=== PATIENT | male | born 1945 | race Caucasian/White ===

== ENCOUNTER 2021-08-07 01:03 | Inpatient (IN) ==
[2021-08-07] MEDS ORDERED: Naloxone 0.4 MG/ML INJ IVP PRN ×2 (03:24→20:21)
[2021-08-07] MEDS ORDERED: Ondansetron 4 MG/2 ML VIAL IVP PRN ×2 (03:24→20:21)
[2021-08-07] MEDS ORDERED: 0.9 % Sodium Chloride 1,000 ML IVC SCH ×2 (03:30→15:00)
[2021-08-07] MEDS ORDERED: Acetaminophen 325 MG TABLET PO PRN ×2 (04:42→20:21)
[2021-08-07] MEDS ORDERED: Melatonin 3 MG TABLET PO PRN ×2 (04:42→20:21)
[2021-08-07] MEDS ORDERED: *HR* HYDROcodone/Acet 5/325 mg TABLET PO PRN (04:42)
[2021-08-07] MEDS ORDERED: *HR* Metoprolol 5 MG/5 ML VIAL IVP ONE ×2 (04:46→15:15)
[2021-08-07] MEDS ORDERED: *HR* Heparin 5,000 UNIT/ML VIAL IVP PRN ×2 (04:49)
[2021-08-07] MEDS ORDERED: Heparin 25,000UNIT/250ML 1/2NS 25,000 UNIT/250 ML IV.SOLN IVC SCH (05:00)
[2021-08-07] MEDS ORDERED: Saliva Stimulant 44.3ml BOTTLE PO PRN ×2 (05:35→20:21)
[2021-08-07] MEDS ORDERED: D5% in Water 1,000 ML IVC PRN ×2 (05:35→20:21)
[2021-08-07] MEDS ORDERED: Dextrose Gel 15 GM/37.5 ML TUBE PO PRN ×4 (05:35→20:21)
[2021-08-07] MEDS ORDERED: *HR* Dextrose 50 % in Water (Syg) 50 ML SYRINGE IVP PRN ×2 (05:35→20:21)
[2021-08-07] MEDS ORDERED: Isovue-370 500 ML BOTTLE IVP ONE ×3 (05:45→20:21)
[2021-08-07 05:49] LABS: Bacteria,Urine Few per hpf (None-Few); Bilirubin,Urine Negative (Negative); Blood,Urine Moderate (Negative); Clarity,Urine Clear (Clear); Color,Urine Yellow (Yellow); Glucose,Urine (UA) Normal (Normal); Ketones,Urine 20 mg/dL (Negative); Leukocyte Esterase,Urine Negative (Negative); Mucus,Urine Few per lpf (None-Few); Nitrite,Urine Negative (Negative); Protein,Urine 50 mg/dL (Neg-Trace); RBC,Urine 30-50 per hpf (0-3); Specific Gravity,Urine > 1.030 (1.010-1.025); Squamous Epithelial Cell,Urine Few per hpf (None-Few)
[2021-08-07 06:05] LABS: Basophils % 0.2 %; Hematocrit 30.4 % (37.5-50.1); Hemoglobin 10.1 g/dL (12.9-16.9); Immature Granulocytes % 1.7 % (0-4); Lymphocytes % 2.3 %; Mean Corpuscular HGB Conc 33.2 g/dL (31.6-35.5); Mean Corpuscular Hemoglobin 28.7 pg (28.0-33.3); Mean Corpuscular Volume 86.4 fL (83.0-100.0); Mean Platelet Volume 9.4 fL (9.4-12.4); Monocytes # 1.4 K/mcL (0.0-1.3); Monocytes % 5.7 %; Platelet Count 361 K/mcL (140-400); Red Blood Count 3.52 M/mcL (4.19-5.50); Red Cell Distribution Width 13.2 % (11.5-14.5); Segmented Neutrophils % 90.1 %; White Blood Count 23.9 K/mcL (4.3-11.1)
[2021-08-07 06:13] LABS: INR 1.2; Prothrombin Time 13.5 Seconds (9.4-12.1)
[2021-08-07 06:14] LABS: Basophils # 0.1 K/mcL (0.0-0.2); Lymphocytes # 0.6 K/mcL (0.6-4.6); Neutrophils # 21.5 K/mcL (1.6-8.9)
[2021-08-07 06:15] LABS: Activated Partial Thrombo Time 27.2 Seconds (26.0-36.0); Heparin anti-factor XA UFH < 0.04 IU/mL (0.30-0.70)
[2021-08-07 06:30] LABS: Platelet Estimate Normal (Normal)
[2021-08-07 06:31] LABS: Magnesium 1.7 mg/dL (1.6-2.6)
[2021-08-07 06:36] LABS: Alanine Aminotransferase 15 Units/L (7-52); Albumin 1.8 g/dL (3.5-5.7); Albumin/Globulin Ratio 0.8 (1.1-2.2); Alkaline Phosphatase 89 Units/L (34-104); Aspartate Amino Transferase 28 Units/L (13-39); BUN/Creatinine Ratio 35 (6-26); Bilirubin,Total 1.1 mg/dL (0.3-1.0); Blood Urea Nitrogen 27 mg/dL (8-23); Carbon Dioxide 14 mEq/L (23-29); Chloride 109 mEq/L (98-107); Globulin 2.2 g/dL (2.4-3.5); Glucose 72 mg/dL (70-105); Osmolality,Calculated 280 (280-300); Sodium 133 mEq/L (136-145); eGFR For African Americans > 60 (> 60); eGFR For Non-African Americans > 60 (> 60)
[2021-08-07 06:57] LABS: VBG Ionized Calcium 1.03 mmol/L (1.15-1.35)
[2021-08-07] MEDS ORDERED: Potassium Chloride Elixir 20 MEQ/15 ML UDC PO ONE (08:40)
[2021-08-07] MEDS ORDERED: DilTIAZem CD (24hr) 180 MG CAP.ER.24H PO SCH (09:00)
[2021-08-07] MEDS ORDERED: Chlorhexidine Rinse 15 ML MOUTHWASH MM SCH (09:00)
[2021-08-07] MEDS ORDERED: Lactobacillus 1 EACH CAP.SPRINK PO SCH (09:00)
[2021-08-07] MEDS ORDERED: Multivit/Ca/Min/Fe/FA 1 TAB TABLET PO SCH (09:00)
[2021-08-07] MEDS: Piperacillin/Tazobactam 3.375 GM in 0.9 % Sodium Chloride Mini Bag 100 ML IVPB SCH ×2 (09:23→21:12)
[2021-08-07] MEDS: Calcium Gluconate 1gm/50mL 1 GM/50 ML BAG IVPB SCH ×2 (09:40→10:27)
[2021-08-07 09:45] LABS: Hepatitis B Surface Antigen Nonreactive (Nonreactive)
[2021-08-07 10:10] LABS: Carcinoembryonic Antigen 5.8 ng/mL (Less than 5.0)
[2021-08-07 10:13] LABS: Hepatitis B Core IgM Nonreactive (Nonreactive)
[2021-08-07 10:15] LABS: Hepatitis A Antibody IgM Nonreactive (Nonreactive)
[2021-08-07 10:45] LABS: C-Reactive Protein 125 mg/L (Less than 10)
[2021-08-07] MEDS ORDERED: Calcium Gluconate 1gm/50mL 1 GM/50 ML BAG IVPB ONE (11:30)
[2021-08-07] MEDS ORDERED: *HR* FentaNYL (PF) 100 MCG/2 ML VIAL ONE (13:22)
[2021-08-07] MEDS ORDERED: *HR* Propofol 200 MG/20 ML VIAL IVP ONE (13:22)
[2021-08-07] MEDS ORDERED: Lidocaine -MPF 2% 5 ML VIAL ONE (13:27)
[2021-08-07] MEDS ORDERED: *HR* Etomidate 40 MG/20 ML VIAL IVP ONE (14:34)
[2021-08-07] MEDS ORDERED: Lidocaine HCL 4 ML Topical Solution (Laryng-O-Jet Kit Sterile Pak) TP ONE (14:34)
[2021-08-07 15:30] LABS: Hepatitis C Virus Antibody Reactive (Nonreactive)
[2021-08-07] MEDS: *HR* Metoprolol 5 MG/5 ML VIAL IVP PRN ×5 (16:59→18:29)
[2021-08-07] MEDS ORDERED: Ringers Solution, Lactated 1,000 ML ONE (17:25)
[2021-08-07 17:52] LABS: ABG Base Excess -10 mEq/L (-2 to 3); ABG HCO3 14 mEq/L (21-27); ABG Oxygen Saturation 99 % (95-98); ABG PCO2 27 mmHg (35-45); ABG PH 7.34 pH Units (7.32-7.45); ABG PO2 131 mmHg (85-104); ABG TCO2 15 mEq/L (20-26)
[2021-08-07 18:50] LABS: Basophils # 0.1 K/mcL (0.0-0.2); Basophils % 0.3 %; Hematocrit 33.6 % (37.5-50.1); Hemoglobin 11.3 g/dL (12.9-16.9); Immature Granulocytes % 3.7 % (0-4); Lymphocytes # 0.4 K/mcL (0.6-4.6); Lymphocytes % 1.3 %; Mean Corpuscular HGB Conc 33.6 g/dL (31.6-35.5); Mean Corpuscular Hemoglobin 29.7 pg (28.0-33.3); Mean Corpuscular Volume 88.2 fL (83.0-100.0); Mean Platelet Volume 9.4 fL (9.4-12.4); Monocytes # 1.2 K/mcL (0.0-1.3); Monocytes % 3.8 %; Platelet Count 424 K/mcL (140-400); Red Blood Count 3.81 M/mcL (4.19-5.50); Red Cell Distribution Width 13.5 % (11.5-14.5); Segmented Neutrophils % 90.9 %
[2021-08-07 19:05] LABS: BUN/Creatinine Ratio 28 (6-26); Blood Urea Nitrogen 31 mg/dL (8-23); Calcium 7.7 mg/dL (8.6-10.3); Carbon Dioxide 15 mEq/L (23-29); Chloride 102 mEq/L (98-107); Glucose 101 mg/dL (70-105); Osmolality,Calculated 277 (280-300); Potassium 4.8 mEq/L (3.5-5.1); Sodium 130 mEq/L (136-145); eGFR For African Americans > 60 (> 60); eGFR For Non-African Americans > 60 (> 60)
[2021-08-07 19:20] LABS: Neutrophils # 28.2 K/mcL (1.6-8.9)
[2021-08-07 19:21] LABS: Dohle Bodies Present (Not Present); Toxic Vacuolation Present (Not Present)
[2021-08-07 19:22] LABS: Large Platelets Present (Not Present)
[2021-08-07] MEDS: 0.9 % Sodium Chloride 1,000 ML IVC SCH (21:49)
[2021-08-07] MEDS: Chlorhexidine Rinse 15 ML MOUTHWASH MM SCH (21:49)
[2021-08-07] MEDS: Lactobacillus 1 EACH CAP.SPRINK PO SCH (21:50)
[2021-08-08] MEDS: Piperacillin/Tazobactam 3.375 GM in 0.9 % Sodium Chloride Mini Bag 100 ML IVPB SCH ×4 (01:43→23:27)
[2021-08-08] MEDS: 0.9 % Sodium Chloride 1,000 ML IVC SCH ×3 (05:16→22:16)
[2021-08-08 07:59] LABS: Mean Corpuscular Volume 88.9 fL (83.0-100.0)
[2021-08-08 08:01] LABS: Hematocrit 32.9 % (37.5-50.1); Hemoglobin 10.8 g/dL (12.9-16.9); Mean Corpuscular HGB Conc 32.8 g/dL (31.6-35.5); Mean Corpuscular Hemoglobin 29.2 pg (28.0-33.3); Mean Platelet Volume 9.6 fL (9.4-12.4); Platelet Count 390 K/mcL (140-400); Red Cell Distribution Width 13.7 % (11.5-14.5); White Blood Count 28.3 K/mcL (4.3-11.1)
[2021-08-08 08:20] LABS: Albumin 2.1 g/dL (3.5-5.7); Albumin/Globulin Ratio 0.8 (1.1-2.2); Bilirubin,Total 1.5 mg/dL (0.3-1.0); Calcium 7.5 mg/dL (8.6-10.3); Globulin 2.6 g/dL (2.4-3.5); Magnesium 2.6 mg/dL (1.6-2.6); Phosphorous 4.3 mg/dL (2.7-4.5); Potassium 4.6 mEq/L (3.5-5.1); Total Protein 4.7 g/dL (6.4-8.9)
[2021-08-08] MEDS ORDERED: Morphine Sulfate 2 MG/ML SYRINGE IVP ONE ×2 (08:21→15:26)
[2021-08-08] MEDS: DilTIAZem CD (24hr) 180 MG CAP.ER.24H PO SCH (08:26)
[2021-08-08] MEDS: Lactobacillus 1 EACH CAP.SPRINK PO SCH ×2 (08:26→19:57)
[2021-08-08] MEDS: Chlorhexidine Rinse 15 ML MOUTHWASH MM SCH ×2 (08:26→19:56)
[2021-08-08] MEDS: Multivit/Ca/Min/Fe/FA 1 TAB TABLET PO SCH (08:27)
[2021-08-08 08:43] LABS: Folate 8.3 ng/mL (3.0-16.0)
[2021-08-08 10:44] LABS: Ferritin 475 ng/mL (20-250); Iron < 10 mcg/dL (65-175)
[2021-08-08 11:17] LABS: Platelet Estimate Normal (Normal)
[2021-08-08] MEDS ORDERED: Calcium Gluconate 1gm/50mL 1 GM/50 ML BAG IVPB ONE (11:28)
[2021-08-08 16:09] LABS: Creatinine,Urine 147 mg/dL; Sodium, Urine < 10.0 mEq/L
[2021-08-09] MEDS ORDERED: Vancomycin 1,250 MG/262.5 ML IV.SOLN IVPB SCH (01:00)
[2021-08-09] MEDS: Piperacillin/Tazobactam 3.375 GM in 0.9 % Sodium Chloride Mini Bag 100 ML IVPB SCH ×3 (08:02→23:20)
[2021-08-09] MEDS: Chlorhexidine Rinse 15 ML MOUTHWASH MM SCH ×2 (08:03→21:38)
[2021-08-09] MEDS: Multivit/Ca/Min/Fe/FA 1 TAB TABLET PO SCH (08:03)
[2021-08-09] MEDS: Lactobacillus 1 EACH CAP.SPRINK PO SCH ×2 (08:04→21:38)
[2021-08-09] MEDS: DilTIAZem CD (24hr) 180 MG CAP.ER.24H PO SCH (08:04)
[2021-08-09] MEDS ORDERED: Ondansetron 4 MG/2 ML VIAL ONE (08:27)
[2021-08-09] MEDS ORDERED: Lidocaine -MPF 2% 5 ML VIAL ONE (08:27)
[2021-08-09] MEDS ORDERED: *HR* Propofol 200 MG/20 ML VIAL IVP ONE (08:27)
[2021-08-09] MEDS ORDERED: *HR* Rocuronium Bromide 50 MG/5 ML VIAL ONE ×2 (08:27→09:40)
[2021-08-09] MEDS ORDERED: *HR* FentaNYL (PF) 100 MCG/2 ML VIAL ONE (08:27)
[2021-08-09] MEDS ORDERED: Lidocaine HCL 4 ML Topical Solution (Laryng-O-Jet Kit Sterile Pak) TP ONE (08:27)
[2021-08-09] MEDS ORDERED: *HR* Vasopressin 20 UNIT/ML VIAL ONE (08:33)
[2021-08-09] MEDS ORDERED: Dexmedetomidine HCl 400 MCG/100 ML MLS IVC ONE (08:33)
[2021-08-09] MEDS ORDERED: *HR* HYDROmorphone PF 0.5 MG/0.5 ML SYRINGE IVP PRN ×2 (08:54→11:46)
[2021-08-09] MEDS ORDERED: Sugammadex Sodium 200 MG/2 ML VIAL IV ONE (10:08)
[2021-08-09] MEDS ORDERED: *HR* HYDROMORPHONE 2 MG/ML VIAL ONE (10:09)
[2021-08-09] MEDS ORDERED: Ringers Solution, Lactated 1,000 ML ONE (11:30)
[2021-08-09] MEDS ORDERED: Saliva Stimulant 44.3ml BOTTLE PO PRN (11:46)
[2021-08-09] MEDS ORDERED: D5% in Water 1,000 ML IVC PRN (11:46)
[2021-08-09] MEDS ORDERED: *HR* Dextrose 50 % in Water (Syg) 50 ML SYRINGE IVP PRN (11:46)
[2021-08-09] MEDS ORDERED: Melatonin 3 MG TABLET PO PRN (11:46)
[2021-08-09] MEDS ORDERED: Acetaminophen 325 MG TABLET PO PRN (11:46)
[2021-08-09] MEDS ORDERED: Ondansetron 4 MG/2 ML VIAL IVP PRN (11:46)
[2021-08-09] MEDS ORDERED: Dextrose Gel 15 GM/37.5 ML TUBE PO PRN ×2 (11:46)
[2021-08-09] MEDS ORDERED: Naloxone 0.4 MG/ML INJ IVP PRN (11:46)
[2021-08-09] MEDS: 0.9 % Sodium Chloride 1,000 ML IVC SCH (12:52)
[2021-08-09] MEDS ORDERED: *HR* Metoprolol 5 MG/5 ML VIAL IVP ONE (13:12)
[2021-08-09 13:26] LABS: Hematocrit 32.3 % (37.5-50.1); Hemoglobin 10.8 g/dL (12.9-16.9); Mean Corpuscular HGB Conc 33.4 g/dL (31.6-35.5); Mean Corpuscular Hemoglobin 29.6 pg (28.0-33.3); Mean Corpuscular Volume 88.5 fL (83.0-100.0); Mean Platelet Volume 9.6 fL (9.4-12.4); Platelet Count 274 K/mcL (140-400); Red Blood Count 3.65 M/mcL (4.19-5.50); Red Cell Distribution Width 13.9 % (11.5-14.5)
[2021-08-09 13:31] LABS: White Blood Count 33.1 K/mcL (4.3-11.1)
[2021-08-09 13:44] LABS: Calcium 7.3 mg/dL (8.6-10.3); Potassium 4.2 mEq/L (3.5-5.1)
[2021-08-09 14:04] LABS: Lymphocytes # 0.3 K/mcL (0.6-4.6); Monocytes # 0.7 K/mcL (0.0-1.3); Neutrophils # 31.1 K/mcL (1.6-8.9)
[2021-08-09 14:11] LABS: Burr Cells 2+ (Not Present)
[2021-08-09 14:12] LABS: Anisocytosis 1+ (Not Present); Platelet Estimate Normal (Normal); Poikilocytosis 2+ (Not Present); Toxic Granulation Present (Not Present)
[2021-08-09] MEDS ORDERED: Albumin 25% 25gram/100mL 25 GM/100 ML IV.SOLN IVPB ONE (23:38)
[2021-08-10] MEDS ORDERED: Vancomycin 1,250 MG/262.5 ML IV.SOLN IVPB SCH (01:00)
[2021-08-10] MEDS ORDERED: Albumin 25% 25gram/100mL 25 GM/100 ML IV.SOLN IVPB ONE (01:14)
[2021-08-10] MEDS: Calcium Gluconate 1gm/50mL 1 GM/50 ML BAG IVPB SCH ×2 (03:39→04:49)
[2021-08-10 05:08] LABS: Hematocrit 31.8 % (37.5-50.1); Hemoglobin 10.3 g/dL (12.9-16.9); Mean Corpuscular HGB Conc 32.4 g/dL (31.6-35.5); Mean Corpuscular Hemoglobin 29.4 pg (28.0-33.3); Mean Corpuscular Volume 90.9 fL (83.0-100.0); Mean Platelet Volume 10.1 fL (9.4-12.4); Platelet Count 242 K/mcL (140-400); Red Cell Distribution Width 14.3 % (11.5-14.5)
[2021-08-10 05:13] LABS: White Blood Count 31.3 K/mcL (4.3-11.1)
[2021-08-10 05:15] LABS: Albumin 2.5 g/dL (3.5-5.7); Calcium 7.7 mg/dL (8.6-10.3); Potassium 4.9 mEq/L (3.5-5.1)
[2021-08-10 07:00] LABS: INR 1.1
[2021-08-10 07:02] LABS: Activated Partial Thrombo Time 27.3 Seconds (26.0-36.0)
[2021-08-10] MEDS: Piperacillin/Tazobactam 3.375 GM in 0.9 % Sodium Chloride Mini Bag 100 ML IVPB SCH ×3 (09:40→22:59)
[2021-08-10] MEDS: DilTIAZem CD (24hr) 180 MG CAP.ER.24H PO SCH (09:40)
[2021-08-10] MEDS: Lactobacillus 1 EACH CAP.SPRINK PO SCH ×2 (09:40→20:30)
[2021-08-10] MEDS: Chlorhexidine Rinse 15 ML MOUTHWASH MM SCH ×2 (09:40→20:30)
[2021-08-10] MEDS: Multivit/Ca/Min/Fe/FA 1 TAB TABLET PO SCH (09:40)
[2021-08-10] MEDS: 0.9 % Sodium Chloride 1,000 ML IVC SCH ×2 (09:41→09:42)
[2021-08-10 11:11] LABS: Uric Acid 6.1 mg/dL (2.3-7.6)
[2021-08-10] MEDS: Sodium Bicarbonate 75 MEQ in 0.45 % Sodium Chloride 1,000 ML IVC SCH ×2 (11:49→21:41)
[2021-08-10] MEDS ORDERED: DAPTOmycin 750 MG in 0.9 % Sodium Chloride 100 ML IVPB SCH (12:00)
[2021-08-11 02:26] LABS: Mean Corpuscular Volume 89.2 fL (83.0-100.0); Red Cell Distribution Width 14.4 % (11.5-14.5)
[2021-08-11 02:27] LABS: Hematocrit 31.4 % (37.5-50.1); Hemoglobin 9.9 g/dL (12.9-16.9); Mean Corpuscular HGB Conc 31.5 g/dL (31.6-35.5); Mean Corpuscular Hemoglobin 28.1 pg (28.0-33.3); Mean Platelet Volume 9.6 fL (9.4-12.4); Platelet Count 237 K/mcL (140-400); Red Blood Count 3.52 M/mcL (4.19-5.50)
[2021-08-11 02:30] LABS: White Blood Count 38.9 K/mcL (4.3-11.1)
[2021-08-11 02:45] LABS: Calcium 7.6 mg/dL (8.6-10.3); Potassium 4.3 mEq/L (3.5-5.1)
[2021-08-11] MEDS: Multivit/Ca/Min/Fe/FA 1 TAB TABLET PO SCH (09:40)
[2021-08-11] MEDS: Lactobacillus 1 EACH CAP.SPRINK PO SCH ×2 (09:40→20:47)
[2021-08-11] MEDS: Piperacillin/Tazobactam 3.375 GM in 0.9 % Sodium Chloride Mini Bag 100 ML IVPB SCH ×3 (09:40→23:35)
[2021-08-11] MEDS: DilTIAZem CD (24hr) 180 MG CAP.ER.24H PO SCH (09:40)
[2021-08-11] MEDS: Chlorhexidine Rinse 15 ML MOUTHWASH MM SCH ×2 (09:41→20:47)
[2021-08-11 10:22] LABS: Transferrin 95 mg/dL (200-400)
[2021-08-11] MEDS: Sodium Bicarbonate 75 MEQ in 0.45 % Sodium Chloride 1,000 ML IVC SCH (12:17)
[2021-08-11] MEDS ORDERED: *HR* Metoprolol 5 MG/5 ML VIAL IVP ONE (14:25)
[2021-08-11] MEDS ORDERED: Piperacillin/Tazobactam 3.375 GM in 0.9 % Sodium Chloride Mini Bag 100 ML IVPB SCH (18:00)
[2021-08-12 00:18] LABS: Hematocrit 29.4 % (37.5-50.1); Hemoglobin 9.8 g/dL (12.9-16.9); Immature Granulocytes % 5.4 % (0-4); Lymphocytes # 0.9 K/mcL (0.6-4.6); Mean Corpuscular HGB Conc 33.3 g/dL (31.6-35.5); Mean Corpuscular Hemoglobin 29.4 pg (28.0-33.3); Mean Corpuscular Volume 88.3 fL (83.0-100.0); Mean Platelet Volume 10.2 fL (9.4-12.4); Monocytes # 1.6 K/mcL (0.0-1.3); Monocytes % 3.7 %; Neutrophils # 39.2 K/mcL (1.6-8.9); Platelet Count 245 K/mcL (140-400); Red Blood Count 3.33 M/mcL (4.19-5.50); Red Cell Distribution Width 14.5 % (11.5-14.5); Segmented Neutrophils % 88.9 %
[2021-08-12 00:24] LABS: White Blood Count 44.1 K/mcL (4.3-11.1)
[2021-08-12 00:36] LABS: Albumin 2.2 g/dL (3.5-5.7); Albumin/Globulin Ratio 0.9 (1.1-2.2); Bilirubin,Direct 1.1 mg/dL (0.0-0.2); Bilirubin,Indirect 0.5 mg/dL (0.0-1.0); Bilirubin,Total 1.6 mg/dL (0.3-1.0); Calcium 7.5 mg/dL (8.6-10.3); Globulin 2.5 g/dL (2.4-3.5); Potassium 4.8 mEq/L (3.5-5.1); Total Protein 4.7 g/dL (6.4-8.9)
[2021-08-12 00:47] LABS: Platelet Estimate Normal (Normal)
[2021-08-12] MEDS ORDERED: 0.9 % Sodium Chloride 1,000 ML IVC SCH (02:15)
[2021-08-12] MEDS: Calcium Gluconate 1gm/50mL 1 GM/50 ML BAG IVPB SCH ×2 (02:21→03:23)
[2021-08-12 06:53] VITALS: BP 138/56; PULSE 95; TEMP 97.8; O2SAT 95
[2021-08-12] MEDS: DilTIAZem CD (24hr) 180 MG CAP.ER.24H PO SCH (08:41)
[2021-08-12] MEDS: Chlorhexidine Rinse 15 ML MOUTHWASH MM SCH (08:41)
[2021-08-12] MEDS: Piperacillin/Tazobactam 3.375 GM in 0.9 % Sodium Chloride Mini Bag 100 ML IVPB SCH (08:41)
[2021-08-12] MEDS: Lactobacillus 1 EACH CAP.SPRINK PO SCH (08:41)
[2021-08-12] MEDS: Multivit/Ca/Min/Fe/FA 1 TAB TABLET PO SCH (08:41)
[2021-08-12 09:01] LABS: ABG Base Excess -18 mEq/L (-2 to 3); ABG HCO3 7 mEq/L (21-27); ABG Oxygen Saturation 95 % (95-98); ABG PCO2 15 mmHg (35-45); ABG PH 7.26 pH Units (7.32-7.45); ABG PO2 81 mmHg (85-104); ABG TCO2 7 mEq/L (20-26)
[2021-08-12 10:04] LABS: Adenovirus Not Detected (Not Detect); Bordetella Pertussis Not Detected (Not Detect); Chlamydophila pneumoniae Not Detected (Not Detect); Coronavirus 229E Not Detected (Not Detect); Coronavirus HKU1 Not Detected (Not Detect); Coronavirus NL63 Not Detected (Not Detect); Coronavirus OC43 Not Detected (Not Detect); Human Metapneumovirus Not Detected (Not Detect); Human Rhinovirus/Enterovirus Not Detected (Not Detect); Influenza A Subtype 2009 H1 Not Detected (Not Detect); Influenza B Not Detected (Not Detect); Mycoplasma pneumoniae Not Detected (Not Detect); Parainfluenza Virus 1 Not Detected (Not Detect); Parainfluenza Virus 2 Not Detected (Not Detect); Parainfluenza Virus 3 Not Detected (Not Detect); Parainfluenza Virus 4 Not Detected (Not Detect); Respiratory Syncytial Virus Not Detected (Not Detect); SARS-CoV-2 Not Detected (Not Detect)
[2021-08-12] MEDS ORDERED: 0.9 % Sodium Chloride 1,000 ML ONE (11:38)
[2021-08-12] MEDS ORDERED: Metoclopramide 10 MG/2 ML VIAL IVP SCH (12:00)
== END 2021-08-12 11:44 | disposition expired | DRG 853 ==
LOC: 3BNU → SUATTDRO 02:46
PROVIDERS: ADMIT Internal Medicine; ATTEND Internal Medicine